=== PATIENT | male | born 1995 | race Caucasian/White ===

== ENCOUNTER 2017-09-03 10:51 | Emergency (ER) | payer MEDICAID, OTHER ==
[~2017-09-03] VITALS: Ht 177.8 cm; Wt 90.7 kg
[2017-09-03 10:58] VITALS: BP 119/81
--- NOTE | 2017-09-03 11:05 | NUR ---
Patient to bed 02.
--- NOTE | 2017-09-03 11:10 | NUR ---
21M BIB SELF WITH C/O DIZZINESS X 2 DAY, WORSE TODAY. DENIES N/V/D; SKIN IS PINK/WARM/DRY; AAOX4 WITH EVEN AND STEADY GAIT; LUNGS CLEAR BL; HR EVEN AND REGULAR; PT DENIES ANY FEVER, CP, SOB, OR COUGH AT THIS TIME; PATIENT STATES PAIN OF 0/10 AT THIS TIME; VSS; PATIENT POSITIONED FOR COMFORT; HOB ELEVATED; BEDRAILS UP X2; BED DOWN. ER MD MADE AWARE OF PT STATUS.
[2017-09-03] MEDS ORDERED: MECLIZINE 25 MG TAB PO ONE (11:25)
[2017-09-03 12:40] VITALS: BP 119/69
[2017-09-03 12:43] LABS: BARBITURATE, URINE NEG. ng/ml (NEG <=200); BENZODIAZEPINE, URINE NEG. ng/mL (NEG <=200); CANNABINOID, URINE NEG. ng/mL (NEG <=50); COCAINE, URINE NEG. ng/mL (NEG <=300); OPIATE, URINE NEG. ng/mL (NEG <=2000); PHENCYCLIDINE SCREEN,URINE NEG. ng/mL (NEG <=25)
== END 2017-09-03 12:40 | disposition home or self-care (01) ==
LOC: MED 10:51
DX: H81.10 Benign paroxysmal vertigo, unspecified ear (principal)
CPT/HCPCS: 80305; 99283; J8597

== ENCOUNTER 2018-07-10 14:06 | Emergency (ER) | payer BC, MEDICAID, OTHER ==
[~2018-07-10] VITALS: Ht 175.3 cm; Wt 93.0 kg
[2018-07-10 14:14] VITALS: BP 122/72
--- NOTE | 2018-07-10 14:40 | NUR ---
PT AMBULATES TO BED 10
--- NOTE | 2018-07-10 14:48 | NUR ---
PT C/O NON RADIATING MID ABDOMINAL PAIN, DIARRHEA, DIZZINESS X 1 WK WORSE AFTER EATING FEELS LIKE "BLOATING"; DENIES VOMITING; WAS TOLD HAS GALL BLADER PROBLEM AT AN URGENT CARE LAST TUESDAY; ADVISED TO SEEK MEDICAL HELP IF SYMPTOM PERSIST PER PT. VSS; PATIENT POSITIONED FOR COMFORT; HOB ELEVATED; BEDRAILS UP X1; BED DOWN. ER MD MADE AWARE OF PT STATUS.
--- NOTE | 2018-07-10 15:38 | NUR ---
Patient being evaluated by physician at bedside.
[2018-07-10] MEDS ORDERED: LIDOCAINE VISCOUS 2% 20 ML UDC PO ONE (15:40)
[2018-07-10] MEDS ORDERED: ALUMINUM HYD/MAG/SIMETHICONE 30 ML UDC PO ONE (15:40)
[2018-07-10] MEDS ORDERED: DICYCLOMINE HCL LIQUID 10 MG/5 ML UDC PO ONE (15:40)
[2018-07-10] MEDS ORDERED: PANTOPRAZOLE 40 MG TABEC PO ONE (16:15)
[2018-07-10 18:21] VITALS: BP 120/65
--- NOTE | 2018-07-10 18:21 | NUR ---
Patient discharged with v/s stable. Written and verbal after care instructions given and explained. Patient alert, oriented and verbalized understanding of instructions. Ambulatory with steady gait. All questions addressed prior to discharge. ID band removed. Patient advised to follow up with PMD. Rx of protonix given. Patient educated on indication of medication including possible reaction and side effects. Opportunity to ask questions provided and answered.
== END 2018-07-10 18:21 | disposition home or self-care (01) ==
LOC: MED 14:06
DX: K29.00 Acute gastritis without bleeding (principal)
CPT/HCPCS: 76705; 81002; 99284; Q0092